=== PATIENT | male | born 1980 | race Hispanic/Latino ===

== ENCOUNTER → 2017-12-19 | Outpatient (CLI) | payer OTHER | LOC: M SLEEP 20:00 | DX: G47.33 Obstructive sleep apnea (adult) (pediatric) (principal); G47.61 Periodic limb movement disorder | CPT/HCPCS: 95810 ==

== ENCOUNTER → 2018-01-17 | Outpatient (CLI) | payer OTHER | LOC: M SLEEP 20:00 | DX: G47.33 Obstructive sleep apnea (adult) (pediatric) (principal) | CPT/HCPCS: 95811 ==

== ENCOUNTER → 2018-07-14 | Outpatient (REF) | LOC: M SMT 13:43 | DX: Z02.71 Encounter for disability determination (principal) ==

== ENCOUNTER 2018-09-25 22:35 | Emergency (ER) | payer OTHER ==
[~2018-09-25] VITALS: Ht 177.8 cm; Wt 104.5 kg
[2018-09-25 22:35] VITALS: BP 143/90
[2018-09-25 23:44] LABS: INFLUENZA A AMPLIFICATION NEGATIVE (NEGATIVE); INFLUENZA B AMPLIFICATION NEGATIVE (NEGATIVE)
[2018-09-26] MEDS ORDERED: FLON1SPR NARES ×2 (00:54→00:56)
[2018-09-26] MEDS ORDERED: PSEU1TAB3 PO ×2 (00:54→00:56)
[2018-09-26] MEDS ORDERED: ACETAMINOPHEN 325 MG TAB PO ONE (01:00)
== END 2018-09-26 00:59 | disposition home or self-care (01) ==
LOC: M ED 22:35
DX: J32.9 Chronic sinusitis, unspecified (principal); B34.9 Viral infection, unspecified; R52 Pain, unspecified

== ENCOUNTER 2018-10-20 14:05 | Emergency (ER) | payer OTHER ==
[~2018-10-20] VITALS: Ht 177.8 cm; Wt 104.5 kg
[2018-10-20 14:05] VITALS: BP 167/92
[~2018-10-20 14:05] MED LIST: FLON1SPR NARES; PSEU1TAB3 PO
[2018-10-20] MEDS ORDERED: GABA-843 (14:10)
[2018-10-20] MEDS ORDERED: MELO15TA28 PO (14:10)
[2018-10-20] MEDS ORDERED: PRED20TA PO (14:53)
== END 2018-10-20 14:58 | disposition home or self-care (01) ==
LOC: M ED 14:05
DX: M54.16 Radiculopathy, lumbar region (principal)